=== PATIENT | female | born 1965 | race Caucasian/White ===

== ENCOUNTER 2021-11-15 12:20 | Outpatient (CLI) | payer OTHER ==
[2021-11-16 14:44] LABS: SARS-CoV-2 PCR by NAA Not Detected (NotDetected)
== END 2021-11-15 12:21 | disposition home or self-care (01) ==
LOC: CSHLAB 12:20
PROVIDERS: ATTEND Student in an Organized Health Care Education/Training Program
DX: Z20.822 Contact with and (suspected) exposure to COVID-19 (principal)
CPT/HCPCS: U0003; U0005

== ENCOUNTER 2021-11-19 10:24 | Outpatient (CLI) | payer OTHER | END 2021-11-19 10:25 | disposition home or self-care (01) | LOC: CSHCP 10:24 | PROVIDERS: ATTEND Student in an Organized Health Care Education/Training Program | DX: J44.9 Chronic obstructive pulmonary disease, unspecified (principal) | CPT/HCPCS: 94060; 94726; 94729; 94760 ==